=== PATIENT | female | born 1990 ===

== ENCOUNTER 2019-03-20 13:43 | Emergency (ER) | payer SELFPAY ==
[2019-03-20] MEDS ORDERED: MORPHINE 4 MG/ML SYR ONE (14:04)
[2019-03-20] MEDS ORDERED: ONDANSETRON 4 MG/2 ML VIAL ONE (14:04)
[2019-03-20 14:33] LABS: Absolute Lymphocytes (CBC) 1.3 K/uL (0.7-4.9); Basophils % 0.5 % (0-1.3); Hematocrit 39.5 % (36.0-45.0); Lymphocytes % 18.8 % (15.3-44.8); MPV 8.7 fL (7.6-11.3); RBC Red Blood Cell Count 4.51 M/uL (3.86-4.86)
[2019-03-20 14:55] LABS: ALT/SGPT 17 U/L (12-78); AST/SGOT 13 U/L (15-37); Albumin 3.8 g/dL (3.4-5.0); Alkaline Phosphatase 77 U/L (45-117); BUN Blood Urea Nitrogen 7 mg/dL (7-18); Bicarbonate 29 mmol/L (21-32); Bilirubin Direct < 0.1 mg/dL (0-0.2); Bilirubin Total 0.2 mg/dL (0.2-1.0); Glucose Level 73 mg/dL (74-106); Lipase 148 U/L (73-393); Potassium 3.8 mmol/L (3.5-5.1); Protein, Total 7.5 g/dL (6.4-8.2); Sodium Level 142 mmol/L (136-145)
--- NOTE | 2019-03-20 15:32 | RAD REPORT ---
EXAM DESCRIPTION: CTAbdomen Pelvis W Contrast - 03/20/2019 3:20 pm CLINICAL HISTORY: Abdominal pain. FLANK PAIN COMPARISON: No comparisons TECHNIQUE: Biphasic CT imaging of the abdomen and pelvis was performed with 100 ml non-ionic IV cont rast. All CT scans are performed using dose optimization technique as appropriate and may include automated exposure control or mA/KV adjustment according to patient size. FINDINGS: The lung bases are clear. The liver, spleen, pancreas, adrenal glands and kidneys are within normal limits. No bowel obstruction, free air, intra-abdominal free fluid or abscess. The appendix is normal. No e vidence of significant lymphadenopathy. Trace pelvic free fluid. No suspicious bony findings. The bladder mucosa shows mild enhancement. IMPRESSION: Cystitis is a possibility. Correlation with urinalysis is suggested.
[2019-03-20] MEDS ORDERED: CEFTRIAXONE/SWI 1gm 1 GM/10 ML SYR ONE (15:41)
[2019-03-20] MEDS ORDERED: KETOROLAC 30 MG/ML INJ ONE (16:11)
--- NOTE | 2019-03-20 16:14 | ER ---
Nurse's Notes [facility] Name: Sonya Guevara Age: 28 yrs Sex: Female : 1990 Arrival Date: 03/20/2019 Time: 13:44 Bed 19 Private MD: Diagnosis: Cystitis Presentation: 03/20 13:46 Presenting complaint: Right flank pain, difficulty urinating, and chills since last hb night. Hx of pyelonephritis reports pain is similar. Transition of care: patient was not received from another setting of care. Onset of symptoms was March 19, 2019. Risk Assessment: Do you want to hurt yourself or someone else? Patient reports no desire to harm self or others. Care prior to arrival: None. 13:46 Method Of Arrival: Ambulatory hb 13:46 Acuity: VICTORINA 3 hb 13:52 Initial Sepsis Screen: Does the patient meet any 2 criteria? No. Patient's initial tw2 sepsis screen is negative. Does the patient have a suspected source of infection? No. Patient's initial sepsis screen is negative. 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 tw2 Historical: - Allergies: 13:48 No Known Allergies; hb - Home Meds: 13:48 None [Active]; hb - PSHx: 13:48 None; hb - Immunization history:: Adult Immunizations up to date. - Social history:: Smoking status: Patient/guardian denies using tobacco. - Ebola Screening: : No symptoms or risks identified at this time. Screenin:51 Abuse screen: Denies threats or abuse. Nutritional screening: No deficits noted. tw2 Tuberculosis screening: No symptoms or risk factors identified. Fall Risk None identified. Assessment: 13:52 General: Appears uncomfortable, slender, Behavior is calm, cooperative, appropriate for tw2 age. Pain: Complains of pain in right mid back and right low back. Neuro: Level of Consciousness is awake, alert, obeys commands, Oriented to person, place, time, situation. Cardiovascular: Heart tones S1 S2 Patient's skin is warm and dry. Respiratory: Airway is patent Respiratory effort is even, unlabored, Respiratory pattern is regular, symmetrical, GI: Abdomen is flat, Bowel sounds present X 4 quads. Abd is soft X 4 quads Abdomen is tender to palpation in right upper quadrant and right lower quadrant. : Reports burning with urination, urgency, urinary frequency. EENT: No signs and/or symptoms were reported regarding the EENT system. Derm: No signs and/or symptoms reported regarding the dermatologic system. Musculoskeletal: Range of motion: intact in all extremities. 13:58 Reassessment: provider at bedside at this time. tw2 14:46 Reassessment: Patient appears in no apparent distress at this time. Patient and/or tw2 family updated on plan of care and expected duration. Pain level reassessed. Patient is alert, oriented x 3, equal unlabored respirations, skin warm/dry/pink. 15:45 Reassessment: Patient appears in no apparent distress at this time. Patient and/or tw2 family updated on plan of care and expected duration. Pain level reassessed. Patient is alert, oriented x 3, equal unlabored respirations, skin warm/dry/pink. Vital Signs: 13:47 BP 125 / 81; Pulse 102; Resp 16; Temp 97.7; Pulse Ox 100% on R/A; Weight 63.5 kg; hb Height 5 ft. (152.40 cm); Pain 8/10; 14:46 BP 98 / 74; Pulse 74; Resp 17; Pulse Ox 99% on R/A; tw2 15:46 BP 108 / 77; Pulse 73; Resp 17; Pulse Ox 100% on R/A; tw2 13:47 Body Mass Index 27.34 (63.50 kg, 152.40 cm) hb ED Course: 13:44 Patient arrived in ED. as 13:47 Triage completed. hb 13:47 Arm band placed on. hb 13:49 Bed in low position. Call light in reach. tw2 13:51 Pamela Penn, RN is Primary Nurse. tw2 13:55 Denny Shay NP is PHCP. tw2 14:10 Missed attempt(s): 20 gauge in right antecubital area. per Mary Student nurse with tw2 direct observation.. Bleeding controlled, band aid applied, catheter tip intact. Inserted saline lock: 22 gauge in left antecubital area, using aseptic technique. Blood collected. Missed attempt(s): 22 gauge in left antecubital area. Bleeding controlled, band aid applied, catheter tip intact. 15:21 CT Abd/Pelvis - IV Contrast Only In Process Unspecified. EDMS 16:13 Gavin Aponte MD is Attending Physician. pm1 16:20 No provider procedures requiring assistance completed. IV discontinued, intact, tw2 bleeding controlled, No redness/swelling at site. Pressure dressing applied. Administered Medications: 14:13 Drug: Zofran 4 mg Route: IVP; Site: left antecubital; tw2 14:45 Follow up: Response: No adverse reaction tw2 14:15 Drug: morphine 4 mg Route: IVP; Site: left antecubital; tw2 14:44 Follow up: Response: No adverse reaction tw2 14:45 Follow up: Response: No adverse reaction; Pain is decreased; RASS: Alert and Calm (0) tw2 15:45 Drug: Rocephin 1 grams Route: IV; Rate: calculated rate; Site: left antecubital; tw2 15:50 Follow up: Response: No adverse reaction; IV Status: Completed infusion tw2 16:13 Drug: TORadol - Ketorolac 15 mg Route: IVP; Site: left antecubital; tw2 16:20 Follow up: Response: No adverse reaction tw2 Outcome: 16:13 Discharge ordered by MD. pm1 16:20 Discharged to home ambulatory. tw2 16:20 Condition: stable 16:20 Discharge instructions given to patient, Instructed on discharge instructions, follow up and referral plans. medication usage, Demonstrated understanding of instructions, follow-up care, medications, Prescriptions given X 3. 16:21 Patient left the ED. tw2 Signatures: Dispatcher [employer] EDFL Jes Peña Patrick, NP LEARNING STRATEGIST pm1 Oliva Borges RN RN Pamela Penn RN RN tw2 Corrections: (The following items were deleted from the chart) 17:01 13:46 Presenting complaint: Right flank pain, difficulty urinating, and chills since hb last night. Hx of polynephritis, reports pain is similar. hb 17:01 13:48 PMHx: polynephritis; hb hb
--- NOTE | 2019-03-20 16:14 | EDPHYS ---
Physician Documentation [facility] Name: Sonya Guevara Age: 28 yrs Sex: Female : 1990 Arrival Date: 03/20/2019 Time: 13:44 Bed 19 Private MD: ED Physician Gavin Aponte HPI: 03/20 15:05 This 28 yrs old Female presents to ER via Ambulatory with complaints of Right Flank pm1 Pain, Abdominal Swelling. 15:05 The patient complains of pain in the right low back. The pain does not radiate. pm1 15:05 Onset: The symptoms/episode began/occurred yesterday. Modifying factors: The symptoms pm1 are alleviated by nothing. the symptoms are aggravated by nothing. Associated signs and symptoms: Pertinent positives: dysuria, urinary frequency, Chills, Pertinent negatives: diarrhea, nausea, vomiting. Severity of pain: in the emergency department the pain is actually worse. The patient has experienced a previous episode, and the symptoms today are exactly the same, dx with pyelonephritis. The patient has not recently seen a physician. 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 tw2 Historical: - Allergies: 13:48 No Known Allergies; hb - Home Meds: 13:48 None [Active]; hb - PSHx: 13:48 None; hb - Immunization history:: Adult Immunizations up to date. - Social history:: Smoking status: Patient/guardian denies using tobacco. - Ebola Screening: : No symptoms or risks identified at this time. ROS: 15:05 Constitutional: Negative for fever, chills, and weight loss, Eyes: Negative for injury, pm1 pain, redness, and discharge, ENT: Negative for injury, pain, and discharge, Neck: Negative for injury, pain, and swelling, Cardiovascular: Negative for chest pain, palpitations, and edema, Respiratory: Negative for shortness of breath, cough, wheezing, and pleuritic chest pain. 15:05 : Negative for injury, bleeding, discharge, and swelling, MS/Extremity: Negative for injury and deformity, Skin: Negative for injury, rash, and discoloration. 15:05 Neuro: Negative for headache, weakness, numbness, tingling, and seizure. 15:05 Abdomen/GI: Positive for abdominal pain, Negative for nausea, vomiting, and diarrhea. 15:05 Back: Positive for flank pain, on the right. Exam: 15:05 Constitutional: This is a well developed, well nourished patient who is awake, alert, pm1 and in no acute distress. Head/Face: Normocephalic, atraumatic. Neck: Trachea midline, no thyromegaly or masses palpated, and no cervical lymphadenopathy. Supple, full range of motion without nuchal rigidity, or vertebral point tenderness. No Meningismus. Chest/axilla: Normal chest wall appearance and motion. Nontender with no deformity. No lesions are appreciated. Cardiovascular: Regular rate and rhythm with a normal S1 and S2. No gallops, murmurs, or rubs. Normal PMI, no JVD. No pulse deficits. Respiratory: Lungs have equal breath sounds bilaterally, clear to auscultation and percussion. No rales, rhonchi or wheezes noted. No increased work of breathing, no retractions or nasal flaring. 15:05 Skin: Warm, dry with normal turgor. Normal color with no rashes, no lesions, and no evidence of cellulitis. MS/ Extremity: Pulses equal, no cyanosis. Neurovascular intact. Full, normal range of motion. 15:05 Abdomen/GI: Inspection: abdomen appears normal, Bowel sounds: normal, Palpation: mild abdominal tenderness, in the suprapubic area. 15:05 Back: pain, that is mild, of the right low back, normal spinal alignment noted. 15:05 Neuro: Orientation: is normal, Motor: is normal, no acute changes, moves all fours. Vital Signs: 13:47 BP 125 / 81; Pulse 102; Resp 16; Temp 97.7; Pulse Ox 100% on R/A; Weight 63.5 kg; hb Height 5 ft. (152.40 cm); Pain 8/10; 14:46 BP 98 / 74; Pulse 74; Resp 17; Pulse Ox 99% on R/A; tw2 15:46 BP 108 / 77; Pulse 73; Resp 17; Pulse Ox 100% on R/A; tw2 13:47 Body Mass Index 27.34 (63.50 kg, 152.40 cm) hb MDM: 14:02 Patient medically screened. pm1 16:11 Data reviewed: vital signs. Data interpreted: Pulse oximetry: on room air is 100 %. pm1 Interpretation: normal. Counseling: I had a detailed discussion with the patient and/or guardian regarding: the historical points, exam findings, and any diagnostic results supporting the discharge/admit diagnosis, lab results, radiology results, the need for outpatient follow up, to return to the emergency department if symptoms worsen or persist or if there are any questions or concerns that arise at home. 03/20 14:03 Order name: Basic Metabolic Panel; Complete Time: 15:05 pm1 03/20 14:03 Order name: CBC with Diff; Complete Time: 14:45 pm1 03/20 14:03 Order name: Creatinine for Radiology; Complete Time: 14:53 pm1 03/20 14:03 Order name: Hepatic Function; Complete Time: 15:05 pm1 03/20 14:03 Order name: Lipase; Complete Time: 15:05 pm1 03/20 15:13 Order name: Urine Dipstick--Ancillary (enter results) 03/20 14:03 Order name: IV Saline Lock; Complete Time: 14:19 pm1 03/20 14:03 Order name: CT Abd/Pelvis - IV Contrast Only; Complete Time: 15:36 pm1 03/20 15:13 Order name: Urine --Ancillary (enter results) 03/20 15:14 Order name: Urine Microscopic Only 03/20 14:03 Order name: Labs collected and sent; Complete Time: 14:19 pm1 03/20 14:03 Order name: Urine Dipstick-Ancillary (obtain specimen); Complete Time: 15:08 pm1 03/20 14:03 Order name: Urine Test (obtain specimen); Complete Time: 15:08 pm1 Administered Medications: 14:13 Drug: Zofran 4 mg Route: IVP; Site: left antecubital; tw2 14:45 Follow up: Response: No adverse reaction tw2 14:15 Drug: morphine 4 mg Route: IVP; Site: left antecubital; tw2 14:44 Follow up: Response: No adverse reaction tw 14:45 Follow up: Response: No adverse reaction; Pain is decreased; RASS: Alert and Calm (0) tw2 15:45 Drug: Rocephin 1 grams Route: IV; Rate: calculated rate; Site: left antecubital; tw2 15:50 Follow up: Response: No adverse reaction; IV Status: Completed infusion tw2 16:13 Drug: TORadol - Ketorolac 15 mg Route: IVP; Site: left antecubital; tw2 16:20 Follow up: Response: No adverse reaction tw2 Disposition: 03/21 09:18 Co-signature as Attending Physician, Gavin Aponte MD I agree with the assessment and kdr plan of care. Disposition: 03/20/19 16:13 Discharged to Home. Impression: Cystitis. - Condition is Stable. - Discharge Instructions: Urinary Tract Infection, Adult. - Prescriptions for Macrobid 100 mg Oral Capsule - take 1 capsule by ORAL route every 12 hours for 10 days; 20 capsule. Pyridium 200 mg Oral Tablet - take 1 tablet by ORAL route every 8 hours for 3 days; 9 tablet. Tramadol 50 mg Oral Tablet - take 1 tablet by ORAL route every 8 hours as needed; 12 tablet. - Medication Reconciliation Form, Thank You Letter, Antibiotic Education, Prescription Opioid Use, Work release form form. - Follow up: Emergency Department; When: As needed; Reason: Worsening of condition. Follow up: Private Physician; When: 2 - 3 days; Reason: Recheck today's complaints, Continuance of care, Re-evaluation by your physician. - Problem is new. - Symptoms have improved. Signatures: Dispatcher [employer] EDMS Gavin Aponte MD MD [facility] Denny Shay NP RESHIPPING CLERK pm1 Oliva Borges, RN RN Pamela Penn RN RN tw2 Corrections: (The following items were deleted from the chart) 03/20 16:21 16:13 03/20/2019 16:13 Discharged to Home. Impression: Cystitis. Condition is Stable. tw2 Forms are Medication Reconciliation Form, Thank You Letter, Antibiotic Education, Prescription Opioid Use. Follow up: Emergency Department; When: As needed; Reason: Worsening of condition. Follow up: Private Physician; When: 2 - 3 days; Reason: Recheck today's complaints, Continuance of care, Re-evaluation by your physician. Problem is new. Symptoms have improved. pm1 17:01 13:48 PMHx: polynephritis; hb hb
[2019-03-20 16:34] LABS: Urine Blood TRACE (NEG); Urine Glucose NEGATIVE (NEG); Urine Protein TRACE (NEG); Urine pH 8.5 (5.0-7.0)
[2019-03-20 16:40] VITALS: TEMP 97.7
[2019-03-20 16:42] VITALS: BP 108/77; O2SAT 100
[2019-03-20 16:42] LABS: Urine Bacteria 20-50 /HPF (<20)
[2019-03-20 16:43] LABS: Urine Culture Reflex Order REFLEXED; Urine Trichomonas PRESENT (NONE SEEN)
== END 2019-03-20 16:21 | disposition home or self-care (01) ==
LOC: ER 13:43
DX: N30.90 Cystitis, unspecified without hematuria (principal)
CPT/HCPCS: 36415; 74177; 80048; 80076; 81003; 81015; 81025; 83690; 85025; 87086; 87088; J0696; J2405; Q9967

== ENCOUNTER 2019-05-23 19:59 | Emergency (ER) | payer SELFPAY ==
--- OUTSIDE RECORDS SUMMARY | 2019-05-23 20:02 | XMS REPORT ---
:1990 [facility] Address [address] [place] [address] Care Team Providers Name Role Phone ALISTAIR BHAKTA Unavailable Unavailable Payers Payer Name Policy Type Policy Number Effective Date Expiration Date Problems This patient has no known problems. Allergies, Adverse Reactions, Alerts Allergy Allergy Status Severity Reaction(s) Onset Inactive Treating Comments Name Type Date Date Clinician No Known DA Active U 2014-04 Allergies -09 00:00:0 0 Medications This patient has no known medications. Results Test Description Test Time Test Comments Text Results Atomic Results Result Comments [facility] [address] [facility] ABDOMEN/PELVIS [place], [place] [address] Patient Name: DELISA GODOY MR #: [id number] : 1990 Age/Sex: 27/F Req #: [id number] Adm Physician: Ordered by: ALISTAIR BHAKTA MD Report #: [id number] Location: ER Room/Bed: _ Procedure: [id number] CT/CT ABDOMEN/PELVIS WO Exam Date: Exam Time: REPORT STATUS: Signed EXAM: CT Abdomen and Pelvis WITHOUT contrast INDICATION: Flank pain, stone versus nephritis COMPARISON: None. TECHNIQUE: Abdomen and pelvis were scanned utilizing a multidetector helical scanner from the lung base to the pubic symphysis without administration of IV contrast. Absence of intravenous contrast decreases sensitivity for detection of focal lesions and vascular pathology. Coronal and sagittal reformations were obtained. Stone protocol is performed. IV CONTRAST: None. ORAL CONTRAST: None RADIATION DOSE: Total DLP: 283.30 mGy*cm Estimated effective dose: (DLP x 0.015 x size factor) mSv COMPLICATIONS: None FINDINGS: LINES and TUBES: None. LOWER THORAX: Unremarkable HEPATOBILIARY: No focal hepatic lesions. No biliary ductal dilation. GALLBLADDER : No radio-opaque stones or sludge. No wall thickening. SPLEEN: No splenomegaly. PANCREAS: No focal masses or ductal dilatation. ADRENALS: No adrenal nodules KIDNEYS/URETERS: There is mild effacement of the right renal sinus fat and prominence of the right ureter without hydronephrosis. No cystic or solid mass lesions. No stones. GI TRACT: No abnormal distention, wall thickening, or evidence of bowel obstruction. Appendix is not clearly identified. There is however no fat stranding or adenopathy in the right lower quadrant to suggest appendicitis. PELVIC ORGANS/BLADDER : Unremarkable. LYMPH NODES: No lymphadenopathy. VESSELS: Unremarkable. PERITONEUM / RETROPERITONEUM: No free air or fluid. BONES: Unremarkable. SOFT TISSUES: Unremarkable. IMPRESSION: 1. Findings are suspicious for right-sided pyelonephritis in the appropriate clinical setting 2. No evidence of nephrolithiasis Signed by: Dr. Damian Brown M.D. on 09/22/2017 3:34 AM Dictated By: DAMIAN CALVERT MD 3 Transcribed By: MARIO on 09/22/17333 COPY TO: ALISTAIR BHAKTA MD
[2019-05-23 20:56] LABS: Urine Blood 1+ (NEG); Urine Glucose NEGATIVE (NEG); Urine Protein TRACE (NEG); Urine Specific Gravity 1.025 (1.005-1.030); Urine pH 5.5 (5.0-7.0)
[2019-05-23 20:56] LABS: Urine Bacteria >50 /HPF (<20); Urine Culture Reflex Order REFLEXED
--- NOTE | 2019-05-23 21:04 | EDPHYS ---
Physician Documentation [facility] Name: Sonya Guevara Age: 28 yrs Sex: Female : 1990 Arrival Date: 05/23/2019 Time: 20:02 Bed 28 Private MD: ED Physician Lito De Guzman HPI: 05/23 20:36 This 28 yrs old Female presents to ER via Ambulatory with complaints of Pain With kb Urination. 20:36 The patient presents with urinary symptoms, dysuria. Onset: The symptoms/episode kb began/occurred today. Modifying factors: The symptoms are alleviated by nothing, the symptoms are aggravated by urinating. Associated signs and symptoms: Pertinent positives: dysuria. Severity of symptoms: At their worst the symptoms were moderate, in the emergency department the symptoms are unchanged. The patient is sexually active. The patient has not experienced similar symptoms in the past. The patient has not recently seen a physician. Pt reports dysuria that started this morning. Denies any other symptoms. Reports boyfriend has similar symptoms. 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 - Social history:: Smoking status: Patient uses tobacco products, smokes one-half pack cigarettes per day. - Ebola Screening: : No symptoms or risks identified at this time. ROS: 20:34 Constitutional: Negative for fever, chills, and weight loss, Neck: Negative for injury, kb pain, and swelling, Cardiovascular: Negative for chest pain, palpitations, and edema, Respiratory: Negative for shortness of breath, cough, wheezing, and pleuritic chest pain, Abdomen/GI: Negative for abdominal pain, nausea, vomiting, diarrhea, and constipation, Back: Negative for injury and pain, MS/Extremity: Negative for injury and deformity, Skin: Negative for injury, rash, and discoloration, Neuro: Negative for headache, weakness, numbness, tingling, and seizure. 20:34 : Positive for burning with urination. Exam: 20:34 Constitutional: This is a well developed, well nourished patient who is awake, alert, kb and in no acute distress. Head/Face: Normocephalic, atraumatic. Neck: Trachea midline, no thyromegaly or masses palpated, and no cervical lymphadenopathy. Supple, full range of motion without nuchal rigidity, or vertebral point tenderness. No Meningismus. Chest/axilla: Normal chest wall appearance and motion. Nontender with no deformity. No lesions are appreciated. Cardiovascular: Regular rate and rhythm with a normal S1 and S2. No gallops, murmurs, or rubs. Normal PMI, no JVD. No pulse deficits. Respiratory: Lungs have equal breath sounds bilaterally, clear to auscultation and percussion. No rales, rhonchi or wheezes noted. No increased work of breathing, no retractions or nasal flaring. Abdomen/GI: Soft, non-tender, with normal bowel sounds. No distension or tympany. No guarding or rebound. No evidence of tenderness throughout. Skin: Warm, dry with normal turgor. Normal color with no rashes, no lesions, and no evidence of cellulitis. MS/ Extremity: Pulses equal, no cyanosis. Neurovascular intact. Full, normal range of motion. Neuro: Awake and alert, GCS 15, oriented to person, place, time, and situation. Cranial nerves II-XII grossly intact. Motor strength 5/5 in all extremities. Sensory grossly intact. Cerebellar exam normal. Normal gait. Vital Signs: 20:19 BP 111 / 78; Pulse 90; Resp 18; Temp 98.3(O); Pulse Ox 98% on R/A; Weight 65.77 kg (R); lp1 Height 5 ft. 0 in. (152.40 cm); Pain 5/10; 21:40 BP 115 / 80; Pulse 80; Resp 16; Temp 98.3; Pulse Ox 99% on R/A; sr5 20:19 Body Mass Index 28.32 (65.77 kg, 152.40 cm) lp1 MDM: 20:20 Patient medically screened. kb 20:34 Data reviewed: vital signs, nurses notes. Data interpreted: Pulse oximetry: on room air kb is 98 %. Interpretation: normal. 21:01 Counseling: I had a detailed discussion with the patient and/or guardian regarding: the kb historical points, exam findings, and any diagnostic results supporting the discharge/admit diagnosis, lab results, the need for outpatient follow up, a family practitioner, to return to the emergency department if symptoms worsen or persist or if there are any questions or concerns that arise at home. ED course: Boyfriend here with similar symptoms + penile discharge. w. 05/23 20:20 Order name: Urine Microscopic Only; Complete Time: 21:00 kb 05/23 20:36 Order name: Urine Dipstick--Ancillary (enter results); Complete Time: 21:00 ar5 05/23 20:36 Order name: Urine --Ancillary (enter results); Complete Time: 21:00 ar5 05/23 20:57 Order name: Urine Culture EDUT 05/23 20:20 Order name: Urine Test (obtain specimen); Complete Time: 20:35 kb 05/23 20:20 Order name: Urine Dipstick-Ancillary (obtain specimen); Complete Time: 20:35 kb Administered Medications: 21:30 Drug: Zithromax 1 grams Route: PO; sr5 22:10 Follow up: Response: Nausea is increased sr5 21:32 Drug: Rocephin (cefTRIAXone) 250 mg Route: IM; Site: right ventrogluteal; sr5 22:10 Follow up: Response: No adverse reaction sr5 Disposition: 05/24 05:47 Co-signature as Attending Physician, Lito De Guzman MD I agree with the assessment and hanna plan of care. Disposition: 05/23/19 21:03 Discharged to Home. Impression: Urinary tract infection, site not specified. - Condition is Stable. - Discharge Instructions: Sexually Transmitted Disease, [id number], Urinary Tract Infection, Adult, [id number]. - Prescriptions for Doxycycline Hyclate 100 mg Oral Tablet - take 1 tablet by ORAL route once daily; 10 tablet. - Medication Reconciliation Form, Thank You Letter, Antibiotic Education, Prescription Opioid Use form. - Follow up: Emergency Department; When: As needed; Reason: Worsening of condition. Follow up: Private Physician; When: 2 - 3 days; Reason: Recheck today's complaints, Continuance of care, Re-evaluation by your physician. Signatures: Dispatcher [facility] Jackelyn Rasmussen, COORDINATOR CARDIOPULMONARY SERVICESDeliaC Lito Frias MD MD cha Pena, Laura, RN RN lp1 Resecker, Davin RN RN sr5 Corrections: (The following items were deleted from the chart) 05/23 22:08 21:03 05/23/2019 21:03 Discharged to Home. Impression: Urinary tract infection, site sr5 not specified. Condition is Stable. Forms are Medication Reconciliation Form, Thank You Letter, Antibiotic Education, Prescription Opioid Use. Follow up: Emergency Department; When: As needed; Reason: Worsening of condition. Follow up: Private Physician; When: 2 - 3 days; Reason: Recheck today's complaints, Continuance of care, Re-evaluation by your physician. kb
--- NOTE | 2019-05-23 21:04 | ER ---
Nurse's Notes [facility] Name: Sonya Guevara Age: 28 yrs Sex: Female : 1990 Arrival Date: 05/23/2019 Time: 20:02 Bed 28 Private MD: Diagnosis: Urinary tract infection, site not specified Presentation: 05/23 20:18 Presenting complaint: Patient states: Burning with urination that began this morning; lp1 Denies any other symptoms. Transition of care: patient was not received from another setting of care. Onset of symptoms was May 23, 2019. Risk Assessment: Do you want to hurt yourself or someone else? Patient reports no desire to harm self or others. Initial Sepsis Screen: Does the patient meet any 2 criteria? No. Patient's initial sepsis screen is negative. Does the patient have a suspected source of infection? No. Patient's initial sepsis screen is negative. Care prior to arrival: None. 20:18 Method Of Arrival: Ambulatory lp1 20:18 Acuity: VICTORINA 4 lp1 ESTABLISHMENT GUIDE: 20:19 LMP 05/23/2019 lp1 Historical: - Allergies: 20:19 No Known Allergies; lp1 - Home Meds: 20:19 None [Active]; lp1 - PMHx: 20:19 None; lp1 - PSHx: 20:19 None; lp1 - Immunization history:: Adult Immunizations up to date. - Social history:: Smoking status: Patient uses tobacco products, smokes one-half pack cigarettes per day. - Ebola Screening: : No symptoms or risks identified at this time. Screenin:20 Abuse screen: Denies threats or abuse. Denies injuries from another. Nutritional lp1 screening: No deficits noted. Tuberculosis screening: No symptoms or risk factors identified. Fall Risk None identified. Assessment: 20:36 General: Appears in no apparent distress. Behavior is calm, cooperative. Pain: Denies sr5 pain. Neuro: No deficits noted. Cardiovascular: No deficits noted. Respiratory: No deficits noted. GI: Abdomen is flat, non-distended, Bowel sounds present X 4 quads. Abd is soft and non tender. : Reports burning with urination. EENT: No signs and/or symptoms were reported regarding the EENT system. Derm: No signs and/or symptoms reported regarding the dermatologic system. Musculoskeletal: No signs and/or symptoms reported regarding the musculoskeletal system. 21:40 Reassessment: Pt experienced some nausea following administration of meds. Vomited sr5 scant amount, no visible pill fragments. Provider notified. Vital Signs: 20:19 BP 111 / 78; Pulse 90; Resp 18; Temp 98.3(O); Pulse Ox 98% on R/A; Weight 65.77 kg (R); lp1 Height 5 ft. 0 in. (152.40 cm); Pain 5/10; 21:40 BP 115 / 80; Pulse 80; Resp 16; Temp 98.3; Pulse Ox 99% on R/A; sr5 20:19 Body Mass Index 28.32 (65.77 kg, 152.40 cm) lp1 ED Course: 20:02 Patient arrived in ED. cl3 20:18 Triage completed. lp1 20:18 Arm band placed on. lp1 20:20 Jackelyn Rasmussen F[facility]-C [facility] kb 20:20 Lito De Guzman MD is Attending Physician. kb 20:33 Davin Polk, RN is Primary Nurse. sr5 20:36 Patient has correct armband on for positive identification. Bed in low position. Call sr5 light in reach. 20:36 Urine collected: clean catch specimen, clear. bb 21:40 No provider procedures requiring assistance completed. Patient did not have IV access sr5 during this emergency room visit. Administered Medications: 21:30 Drug: Zithromax 1 grams Route: PO; sr5 22:10 Follow up: Response: Nausea is increased sr5 21:32 Drug: Rocephin (cefTRIAXone) 250 mg Route: IM; Site: right ventrogluteal; sr5 22:10 Follow up: Response: No adverse reaction sr5 Outcome: 21:03 Discharge ordered by . kb 21:40 Discharged to home ambulatory, with family. sr5 21:40 Condition: good 21:40 Discharge instructions given to patient, Instructed on discharge instructions, follow up and referral plans. medication usage, Demonstrated understanding of instructions, follow-up care, medications, Prescriptions given X 1. 22:08 Patient left the ED. sr5 Signatures: Jackelyn Rasmussen FNP-C FNP-Ckb Ballard, Brenda, RN RN bb Aurelia Galan RN RN lp1 Davin Polk RN RN sr5 Luis Alberto Dee cl3
[2019-05-23] MEDS ORDERED: AZITHROMYCIN 250 MG TAB ONE (21:30)
[2019-05-23] MEDS ORDERED: CEFTRIAXONE 250 MG/VIAL ONE (21:30)
[2019-05-23] MEDS ORDERED: WATER FOR INJ,STERILE 10 ML ONE (21:31)
[2019-05-23 22:27] VITALS: BP 111/78; TEMP 98.3; O2SAT 98
== END 2019-05-23 22:08 | disposition home or self-care (01) ==
LOC: ER 19:59
DX: N39.0 Urinary tract infection, site not specified (principal); F17.210 Nicotine dependence, cigarettes, uncomplicated
CPT/HCPCS: 81003; 81015; 81025; 87086; 87088; 96372; 99283; J0696

== ENCOUNTER 2020-01-24 00:13 | Emergency (ER) | payer SELFPAY ==
--- OUTSIDE RECORDS SUMMARY | 2020-01-24 00:16 | XMS REPORT | Clinical Summary ---
:1990 Author Organization [facility] Address [address] [place] [id number] Care Team Providers Name Role Phone Constantine Nieto MD Primary Care Provider Allergies No Known Allergies Medications No known medications Active Problems Not on file Social History Tobacco Use Types Packs/Day Years Used Date Current Every Day Smoker Cigarettes 0.5 Smokeless Tobacco: Never Used Alcohol Use Drinks/Week oz/Week Comments Yes Sex Assigned at Date Recorded Not on file Job Start Date Occupation Industry Not on file Not on file Not on file Travel History Travel Start Travel End No recent travel history available. 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
--- OUTSIDE RECORDS SUMMARY | 2020-01-24 00:17 | XMS REPORT | Continuity of Care Document ---
:1990 Author Organization [facility] t Address [address] [place] [address] Care Team Providers Name Role Phone NONSTAFF Primary Care Physician Unavailable Nuria BHAKTA Attending Clinician Unavailable Payers Payer Name Policy Type Policy Number Effective Date Expiration Date S ource Blue [employer] Of [id number] [facility] Problems This patient has no known problems. Allergies, Adverse Reactions, Alerts Allergy Allergy Status Severity Reaction(s) Onset Inactive Treating Comm ents Source Name Type Date Date Clinician No Known DA Active U 2013-05 [facility] 07-07 [facility] 00:00: d 00 [facility] [place] Social History Social Habit Start Date Stop Date Quantity Comments Source History of tobacco Cigarette Smoker [place] use Scientologist Sex Assigned At [place] Scientologist Cigarettes smoked 2017-12-28 2017-12-28 [place] current (pack per 00:00:00 00:00:00 Method) - Reported Alcohol intake 2017-12-28 2017-12-28 Current drinker [place] on 00:00:00 00:00:00 of alcohol Scientologist (finding) Smoking Status Start Date Stop Date Source Current every day smoker 2017-12-28 00:00:00 [place] Scient[facility] Medications This patient has no known medications. Procedures Procedure Date / Time Performed Performing Clinician [facility] e [facility] of abdomen and 2017-09-22 00:00:[address] [facility] - pelvis without Patients [facility] Plan of Care Planned Activity Planned Date Details Comments Source Future Scheduled 2020-02-27 INFLUENZA VACCINE [place] [facility] Test 00:00:00 [code = INFLUENZA VACCINE] Future Scheduled 2013 Screening for [place] [facility] Test 00:00:00 malignant neoplasm of cervix (procedure) [code = 166894938] Encounters Start End Encounter Admission Attending Care Care Encounter Source Date/Time Date/Time Type Type Clinicians Facility Department ID 2017-09-22 2017-09-22 Departed ER [facility] [id number] [facility] 01:23:00 04:37:00 Emergency ALISTAIR Vásquez guillermo s - [facility] Results Test Description Test Time Test Comments Results Result Comments Source White Blood Count 2017-09-22 02:15:00 Test Item Value Reference Range Interpretation Comme nts White Blood Count (test code = 6690-2) 8.80 4.8-10.8 [facility] [id number] 02:15:00 Test Item Value Reference Range Interpretation Comments Red Blood Count (test code = 789-8) 4.40 3.6-5.1 [facility]-04[facility] 02:15:00 Test Item Value Reference Range Interpretation Comments Hemoglobin (test code = 17005-6) 13.2 12.0-16.0 [facility]ematocrit2018-04-27 02:15:00 Test Item Value Reference Range Interpretation Comments Hematocrit (test code = 4544-3) 38.1 34.2-44.1 [facility] Corpuscular [id number] 02:15:00 Test Item Value Reference Range Interpretation Comments Mean Corpuscular Volume (test code = 86.6 81-99 787-2) [facility] Corpuscular Ambrrshoan2503-29-12 02:15:00 Test Item Value Reference Range Interpretation Comments Mean Corpuscular Hemoglobin (test code 30.0 28-32 = 785-6) [facility] Hemoglobin Concent 2017-09-22 02:15:00 Test Item Value Reference Range Interpretation Comments Mean Corpuscular Hemoglobin Concent 34.6 31-35 (test code = 786-4) [facility] Distribution [id number] 02:15:00 Test Item Value Reference Range Interpretation Comments Red Cell Distribution Width (test code 13.6 11.7-14.4 = 16689-7) [facility] CenterPlatelet [id number] 02:15:00 Test Item Value Reference Range Interpretation Comments Platelet Count (test code = 777-3) 294 140-360 [facility]rophils (%) (Auto)2017-09-22 02:15:00 Test Item Value Reference Range Interpretation Comments Neutrophils (%) (Auto) (test code = 54.8 38.7-80.0 86365-1) [facility]Lymphocytes (%) (Auto)2017-09-22 02:15:00 Test Item Value Reference Range Interpretation Comments Lymphocytes (%) (Auto) (test code = 34.4 18.0-39.1 736-9) [facility] (%) (Auto)2017-09-22 02:15:00 Test Item Value Reference Range Interpretation Comments Monocytes (%) (Auto) (test code = 6.6 4.4-11.3 5905-5) [facility]Eosinophils (%) (Auto)2017-09-22 02:15:00 Test Item Value Reference Range Interpretation Comments Eosinophils (%) (Auto) (test code = 3.2 0.0-6.0 713-8) [facility] (%) (Auto)2017-09-22 02:15:00 Test Item Value Reference Range Interpretation Comments Basophils (%) (Auto) (test code = 0.7 0.0-1.0 706-2) [facility] CenterIM GRANULOCYTES %2017-09-22 02:15:00 Test Item Value Reference Range Interpretation Comments IM GRANULOCYTES % (test code = IM 0.3 0.0-1.0 GRANULOCYTES %) [facility] CenterNeutrophils # (Auto)2017-09-22 02:15:00 Test Item Value Reference Range Interpretation Comments Neutrophils # (Auto) (test code = 4.8 2.1-6.9 751-8) [facility] CenterLymphocytes # (Auto)2017-09-22 02:15:00 Test Item Value Reference Range Interpretation Comments Lymphocytes # (Auto) (test code = 3.0 1.0-3.2 22647-3) [facility] CenterMonocytes # (Auto)2017-09-22 02:15:00 Test Item Value Reference Range Interpretation Comments Monocytes # (Auto) (test code = 742-7) 0.6 0.2-0.8 [facility] CenterEosinophils # (Auto)2017-09-22 02:15:00 Test Item Value Reference Range Interpretation Comments Eosinophils # (Auto) (test code = 0.3 0.0-0.4 711-2) [facility] # (Auto)2017-09-22 02:15:00 Test Item Value Reference Range Interpretation Comments Basophils # (Auto) (test code = 704-7) 0.1 0.0-0.1 [facility] CenterAbsolute Immature Granulocyte (auto 2017-09-22 02:15:00 Test Item Value Reference Range Interpretation Comments Absolute Immature Granulocyte (auto 0.03 0-0.1 (test code = Absolute Immature Granulocyte (auto) [facility] CenterUrine [id number] 02:11:00 Test Item Value Reference Range Interpretation Comments Urine Test (test code = NEGATIVE NEGATIVE 6-3) [facility] [id number] 02:11:00 Test Item Value Reference Range Interpretation Comments Sodium Level (test code = 2951-2) 137 136-145 [facility] CenterPotassium Dlmkt2507-59-15 02:11:00 Test Item Value Reference Range Interpretation Comments Potassium Level (test code = 2823-3) 3.8 3.5-5.1 [facility] CenterChloride [id number] 02:11:00 Test Item Value Reference Range Interpretation Comments Chloride Level (test code = 2075-0) 104 98-107 [facility] CenterCarbon Dioxide [id number] 02:11:00 Test Item Value Reference Range Interpretation Comments Carbon Dioxide Level (test code = 2028-01) [facility] CenterAnion [id number] 02:11:00 Test Item Value Reference Range Interpretation Comments Anion Gap (test code = 71620-6) 11.8 8-16 [facility] CenterBlood Urea Okkamcux6640-17-47 02:11:00 Test Item Value Reference Range Interpretation Comments Blood Urea Nitrogen (test code = 12-21 3094-0) [facility] CenterCreatinine2018-04-27 02:11:00 Test Item Value Reference Range Interpretation Comments Creatinine (test code = 2160-0) 0.71 0.57-1.11 [facility] CenterBUN/Creatinine Gexuk4535-53-78 02:11:00 Test Item Value Reference Range Interpretation Comments BUN/Creatinine Ratio (test code = 11-20 3097-3) [facility] CenterEstimat Glomerular Filtration Rate 2017-09-22 02:11:00 Test Item Value Reference Range Interpretation Comments Estimat Glomerular Filtration Rate 60- >60 (test code = 77582-2) Ranges were taken from the National Kidney Disease Education Program and the National Kidney Foundation literature.Reference ranges:60 or greater: Jzdqtp58- 59 (for 3 consecutive months): Chronic kidneydisease 15 or less: Kidney failure [facility] CenterGlucose Alips0597-57-32 02:11:00 Test Item Value Reference Range Interpretation Comments Glucose Level (test code = TII3316) 136 74-118 H [facility] CenterCalcium Ljhyo9804-67-10 02:11:00 Test Item Value Reference Range Interpretation Comments Calcium Level (test code = 43320-8) 9.1 8.4-10.2 [facility] CenterTotal Mjwnuxtxw7271-18-39 02:11:00 Test Item Value Reference Range Interpretation Comments Total Bilirubin (test code = 1975-2) 0.2 0.2-1.2 [facility] CenterAspartate Amino Transf (AST/SGOT) 2017-09-22 02:11:00 Test Item Value Reference Range Interpretation Comments Aspartate Amino Transf (AST/SGOT) (test 15 5-34 code = Aspartate Amino Transf (AST/SGOT)) [facility] CenterAlanine Aminotransferase (ALT/SGPT) 2017-09-22 02:11:00 Test Item Value Reference Range Interpretation Comments Alanine Aminotransferase (ALT/SGPT) 14 0-55 (test code = 1742-6) [facility] CenterTotal [id number] 02:11:00 Test Item Value Reference Range Interpretation Comments Total Protein (test code = 2885-2) 7.3 6.5-8.1 [facility] CenterAlbumin2018-04-27 02:11:00 Test Item Value Reference Range Interpretation Comments Albumin (test code = 1751-7) 3.8 3.5-5.0 [facility] CenterGlobulin2018-04-27 02:11:00 Test Item Value Reference Range Interpretation Comments Globulin (test code = 48525-4) 3.5 2.3-3.5 [facility] CenterAlbumin/Globulin Iseko7176-04-93 02:11:00 Test Item Value Reference Range Interpretation Comments Albumin/Globulin Ratio (test code = 1.1 0.8-2.0 1759-0) [facility] CenterAlkaline Brgmxygqeyo0677-34-57 02:11:00 Test Item Value Reference Range Interpretation Comments Alkaline Phosphatase (test code = 70 40-150 6768-6) [facility] CenterUrine [id number] 02:09:00 Test Item Value Reference Range Interpretation Comments Urine WBC (test code = 5821-4) 0-5 0-5 [facility] CenterUrine [id number] 02:09:00 Test Item Value Reference Range Interpretation Comments Urine RBC (test code = 71264-9) 0-5 0-5 [facility] CenterUrine [id number] 02:09:00 Test Item Value Reference Range Interpretation Comments Urine Bacteria (test code = 62345-6) RARE NONE [facility] CenterUrine Epithelial [id number] 02:09:00 Test Item Value Reference Range Interpretation Comments Urine Epithelial Cells (test code = FEW NONE 90261-3) [facility] CenterUrine [id number] 02:00:00 Test Item Value Reference Range Interpretation Comments Urine Color (test code = 5778-6) YELLOW YELLOW [facility] CenterUrine Gcwpyvy9999-76-00 02:00:00 Test Item Value Reference Range Interpretation Comments Urine Clarity (test code = 42537-7) CLEAR CLEAR [facility] CenterUrine Specific [id number] 02:00:00 Test Item Value Reference Range Interpretation Comments Urine Specific [place] (test code = 1.025 1.010-1.025 5811-5) [facility] CenterUrine [id number] 02:00:00 Test Item Value Reference Range Interpretation Comments Urine pH (test code = 65379-0) 6 5-7 [facility] CenterUrine Leukocyte Fdyulpas8636-11-05 02:00:00 Test Item Value Reference Range Interpretation Comments Urine Leukocyte Esterase (test code NEGATIVE NEGATIVE = 5799-2) [facility] CenterUrine [id number] 02:00:00 Test Item Value Reference Range Interpretation Comments Urine Nitrite (test code = 77898-0) NEGATIVE NEGATIVE [facility] CenterUrine [id number] 02:00:00 Test Item Value Reference Range Interpretation Comments Urine Protein (test code = 5804-0) NEGATIVE NEGATIVE [facility] CenterUrine Glucose (UA)2017-09-22 02:00:00 Test Item Value Reference Range Interpretation Comments Urine Glucose (UA) (test code = NEGATIVE NEGATIVE 2349-9) [facility] CenterUrine [id number] 02:00:00 Test Item Value Reference Range Interpretation Comments Urine Ketones (test code = 19022-0) NEGATIVE NEGATIVE [facility] CenterU[facility] Avgurrlcydna8553-00-74 02:00:00 Test Item Value Reference Range Interpretation Comments Urine Urobilinogen (test code = 0.2 0.2-1 91595-5) [facility] CenterUrine [id number] 02:00:00 Test Item Value Reference Range Interpretation Comments Urine Bilirubin (test code = 1978-6) NEGATIVE NEGATIVE [facility] CenterUrine [id number] 02:00:00 Test Item Value Reference Range Interpretation Comments Urine Blood (test code = 81793-8) NEGATIVE NEGATIVE [facility] CenterCT [facility]BDOMEN[facility]PELVIS WO [facility] [address] [address] Patient Name: DELISA GODOY MR #: [id number] : 1990 Age/Sex: 27/F Req #: [id number] Adm Physician: Ordered by: ALISTAIR BHAKTA MD Report #: [id number] Location: ER Room/Bed: Procedure: [id number] CT/CT ABDOMEN/PELVIS WO Exam Date: Exam Time: REPORT STATUS: Signed EXAM: CT Abdomen and Pelvis WITHOUT contrast INDICATION: Flank pain, stone versus nephritis COMPARISON: None. TECHNIQUE: Abdomen and pelvis were scanned utilizing a multidetector helical scanner from the lung base to the pubic symphysis without administration of IV contrast. Absence of intravenous contrast decreases sensitivity fordetection of focal lesions and vascular pathology. Coronal and sagittal reformations were obtained. Stone protocol is performed. IV CONTRAST: None. ORAL CONTRAST: None RADIATION DOSE: Total DLP: 283.30 mGy*cm Estimated effective dose: (DLP x0.015 x size factor) mSv COMPLICATIONS: None FINDINGS: LINES and TUBES: None. LOWER THORAX: Unremarkable HEPATOBILIARY: No focal hepatic lesions. No biliary ductal dilation. GALLBLADDER: No radio-opaque stones or sludge. No wall thickening. SPLEEN: No splenomegaly. PANCREAS: No focal masses or ductal dilatation. ADRENALS: No adrenal nodules KIDNEYS/URETERS: There is mild effacement of the right renal sinus fat and prominence of the right ureter without hydronephrosis. No cystic or solid mass lesions. No stones. GI TRACT: No abnormal distention, wall thickening, or evidence of bowel obstruction. Appendix isnot clearly identified. There is however no fat stranding or adenopathy in the right lower quadrant to suggest appendicitis. PELVIC ORGANS/BLADDER: Unremarkable. LYMPH NODES: No lymphadenopathy. VESSELS: Unremarkable. PERITONEUM / RETROPERITONEUM: No free air or fluid. BONES: Unremarkable. SOFT TISSUES: Unremarkable. IMPRESSION: 1. Findings are suspicious for right-sided pyelonephritis in the appropriate clinical setting 2. No evidence of nephrolithiasis Signed by: Dr. Damian Brown M.D. on 09/22/2017 3:34 AM Dictated By: DAMIAN ARAMBULA MD 3 Transcribed By: MARIO on 09/22/17333 COPY TO: ALISTAIR BHAKTA MD
--- NOTE | 2020-01-24 01:32 | EDPHYS ---
Physician Documentation [facility] Name: Sonya Guevara Age: 29 yrs Sex: Female : 1990 Arrival Date: 01/24/2020 Time: 00:15 Bed 23 Private MD: ED Physician Lito De Guzman HPI: 01/23 01:29 This 29 yrs old Unknown Female presents to ER via Ambulatory with complaints of Pain hanna With Urination, Diarrhea. 01:29 The patient presents to the emergency department with diarrhea. Onset: The hanna symptoms/episode began/occurred 2 day(s) ago. Possible causes: unknown. Historical: - Allergies: 00:53 No Known Allergies; iw - Home Meds: :53 None [Active]; iw - PMHx: :53 None; iw - PSHx: :53 None; iw - Immunization history:: Adult Immunizations unknown. - Social history:: Smoking status: . ROS: 01:29 Constitutional: Negative for fever, chills, and weight loss, Eyes: Negative for injury, hanna pain, redness, and discharge, ENT: Negative for injury, pain, and discharge, Neck: Negative for injury, pain, and swelling, Cardiovascular: Negative for chest pain, palpitations, and edema, Respiratory: Negative for shortness of breath, cough, wheezing, and pleuritic chest pain, Back: Negative for injury and pain, MS/Extremity: Negative for injury and deformity, Skin: Negative for injury, rash, and discoloration, Neuro: Negative for headache, weakness, numbness, tingling, and seizure, Psych: Negative for depression, anxiety, suicide ideation, homicidal ideation, and hallucinations, Allergy/Immunology: Negative for hives, rash, and allergies, Endocrine: Negative for neck swelling, polydipsia, polyuria, polyphagia, and marked weight changes, Hematologic/Lymphatic: Negative for swollen nodes, abnormal bleeding, and unusual bruising. :29 Abdomen/GI: Positive for diarrhea. 01: : Positive for burning with urination, fear of std, recent to positive partner. Exam: 01:29 Constitutional: This is a well developed, well nourished patient who is awake, alert, hanna and in no acute distress. Head/Face: Normocephalic, atraumatic. Eyes: Pupils equal round and reactive to light, extra-ocular motions intact. Lids and lashes normal. Conjunctiva and sclera are non-icteric and not injected. Cornea within normal limits. Periorbital areas with no swelling, redness, or edema. ENT: Nares patent. No nasal discharge, no septal abnormalities noted. Tympanic membranes are normal and external auditory canals are clear. Oropharynx with no redness, swelling, or masses, exudates, or evidence of obstruction, uvula midline. Mucous membranes moist. Neck: Trachea midline, no thyromegaly or masses palpated, and no cervical lymphadenopathy. Supple, full range of motion without nuchal rigidity, or vertebral point tenderness. No Meningismus. Chest/axilla: Normal chest wall appearance and motion. Nontender with no deformity. No lesions are appreciated. Cardiovascular: Regular rate and rhythm with a normal S1 and S2. No gallops, murmurs, or rubs. Normal PMI, no JVD. No pulse deficits. Respiratory: Lungs have equal breath sounds bilaterally, clear to auscultation and percussion. No rales, rhonchi or wheezes noted. No increased work of breathing, no retractions or nasal flaring. Abdomen/GI: Soft, non-tender, with normal bowel sounds. No distension or tympany. No guarding or rebound. No evidence of tenderness throughout. Back: No spinal tenderness. No costovertebral tenderness. Full range of motion. Pelvic Exam: Normal external genitalia. Speculum exam with closed cervical os, no discharge or bleeding noted. Bimanual exam with normal adnexa, no adnexal or cervical motion tenderness. Normal uterus. Skin: Warm, dry with normal turgor. Normal color with no rashes, no lesions, and no evidence of cellulitis. MS/ Extremity: Pulses equal, no cyanosis. Neurovascular intact. Full, normal range of motion. Neuro: Awake and alert, GCS 15, oriented to person, place, time, and situation. Cranial nerves II-XII grossly intact. Motor strength 5/5 in all extremities. Sensory grossly intact. Cerebellar exam normal. Normal gait. Psych: Awake, alert, with orientation to person, place and time. Behavior, mood, and affect are within normal limits. Vital Signs: 00:47 BP 117 / 74; Pulse 110; Resp 16 S; Temp 98.0; Pulse Ox 98% on R/A; Weight 65.77 kg; Height 5 ft. 0 in. (152.40 cm); 00:47 Body Mass Index 28.32 (65.77 kg, 152.40 cm) MDM: 00:41 Patient medically screened. [facility] 01:33 Differential diagnosis: Nonspecific abd pain, gastroenteritis, pelvic inflammatory hanna disease, urinary tract infection. Data reviewed: vital signs, nurses notes, lab test result(s), urinalysis, bacteruria. Data interpreted: threat monitoring analyst: not applicable for this patient encounter. rate is 110 beats/min, rhythm is regular, Pulse oximetry: on room air is 98 %. Counseling: I had a detailed discussion with the patient and/or guardian regarding: the historical points, exam findings, and any diagnostic results supporting the discharge/admit diagnosis, lab results, the need for outpatient follow up, for definitive care, an OB/Gyne specialist. ED course: get checked by adjunct art history instructor, no sexual activity. 01/23 00:42 Order name: Urine Culture [facility] 01/23 00:49 Order name: Urine Dipstick--Ancillary (enter results) [facility] 01/23 00:49 Order name: Urine --Ancillary (enter results) [facility] 01/23 00:42 Order name: Urine Dipstick-Ancillary (obtain specimen); Complete Time: 00:55 [facility] 01/23 00:42 Order name: Urine Test (obtain specimen); Complete Time: 00:55 [facility] Administered Medications: 02:00 Drug: Rocephin (cefTRIAXone) 1 grams Route: IM; Site: left vastus lateralis; 02:08 Follow up: Response: No adverse reaction 02:00 Drug: Zithromax 1 grams Route: PO; iw 02:08 Follow up: Response: No adverse reaction 02:00 Drug: Doxycycline 100 mg Route: PO; iw 02:08 Follow up: Response: No adverse reaction Disposition: 01/24/20 01:32 Discharged to Home. Impression: Dysuria - fear of STD, Diarrhea, unspecified. - Condition is Stable. - Discharge Instructions: Food Choices to Help Relieve Diarrhea, Adult, Diarrhea, Adult, Dysuria, Sexually Transmitted Disease, [id number], Diarrhea, Adult, [id number]. - Prescriptions for Cipro 250 mg Oral Tablet - take 1 tablet by ORAL route every 12 hours; 14 tablet. Doxycycline Hyclate 100 mg Oral Tablet - take 1 tablet by ORAL route every 12 hours; 20 tablet. - Medication Reconciliation Form, Thank You Letter, Antibiotic Education, Prescription Opioid Use form. - Follow up: Private Physician; When: 2 - 3 days; Reason: Recheck today's complaints, Re-evaluation by your physician. - Problem is new. - Symptoms have improved. Signatures: Dispatcher [employer] EDIA Lito De Guzman MD MD cha Williams, Irene RN RN iw Corrections: (The following items were deleted from the chart) 01:56 01:32 01/24/2020 01:32 Discharged to Home. Impression: Dysuria - fear of STD; Diarrhea, iw unspecified. Condition is Stable. Forms are Medication Reconciliation Form, Thank You Letter, Antibiotic Education, Prescription Opioid Use. Follow up: Private Physician; When: 2 - 3 days; Reason: Recheck today's complaints, Re-evaluation by your physician. Problem is new. Symptoms have improved. hanna
--- NOTE | 2020-01-24 01:32 | ER ---
Nurse's Notes [facility] Name: Sonya Guevara Age: 29 yrs Sex: Female : 1990 Arrival Date: 01/24/2020 Time: 00:15 Bed 23 Private MD: Diagnosis: Dysuria-fear of STD;Diarrhea, unspecified Presentation: 01/23 00:47 Chief complaint: Patient states: ex bf told her he had some discharge and she has had iw pain with urination for four days. Coronavirus screen: At this time, the client does not indicate any symptoms associated with coronavirus-19. Ebola Screen: Patient negative for fever greater than or equal to 101.5 degrees Fahrenheit, and additional compatible Ebola Virus Disease symptoms Patient denies exposure to infectious person. Patient denies travel to an Ebola-affected area in the 21 days before illness onset. No symptoms or risks identified at this time. Initial Sepsis Screen: Does the patient meet any 2 criteria? No. Patient's initial sepsis screen is negative. Does the patient have a suspected source of infection? No. Patient's initial sepsis screen is negative. Risk Assessment: Do you want to hurt yourself or someone else? Patient reports no desire to harm self or others. 00:47 Method Of Arrival: Ambulatory iw 00:47 Acuity: VICTORINA 4 iw Triage Assessment: 01:30 General: Appears in no apparent distress. Behavior is calm. iw Historical: - Allergies: 00:53 No Known Allergies; iw - Home Meds: 00:53 None [Active]; iw - PMHx: 00:53 None; iw - PSHx: 00:53 None; iw - Immunization history:: Adult Immunizations unknown. - Social history:: Smoking status: . Screenin:55 Abuse screen: Denies threats or abuse. Denies injuries from another. Nutritional iw screening: No deficits noted. Tuberculosis screening: No symptoms or risk factors identified. Fall Risk None identified. Assessment: 00:47 General: Appears in no apparent distress. Pain: Complains of pain in suprapubic area. iw Neuro: Level of Consciousness is awake, alert, obeys commands, Oriented to person, place, time, situation, Appropriate for age Moves all extremities. Full function. GI: Abdomen is non-distended. : Reports burning with urination, since 01/18. Derm: Skin is intact, is healthy with good turgor. Musculoskeletal: Range of motion: intact in all extremities. 01:45 Reassessment: pt was not in room when attempted to medicate, called pt on cell phone, iw stated that she had to take her daughter home and she would be back. Vital Signs: 00:47 BP 117 / 74; Pulse 110; Resp 16 S; Temp 98.0; Pulse Ox 98% on R/A; Weight 65.77 kg; iw Height 5 ft. 0 in. (152.40 cm); 00:47 Body Mass Index 28.32 (65.77 kg, 152.40 cm) iw ED Course: 00:15 Patient arrived in ED. am2 00:40 Lito De Guzman MD is Attending Physician. hanna 00:45 Angella Sena, RN is Primary Nurse. iw 00:52 Triage completed. iw 01:00 Patient has correct armband on for positive identification. iw 01:40 Arm band placed on. iw 01:55 No provider procedures requiring assistance completed. Patient did not have IV access iw during this emergency room visit. Administered Medications: 02:00 Drug: Rocephin (cefTRIAXone) 1 grams Route: IM; Site: left vastus lateralis; iw 02:08 Follow up: Response: No adverse reaction iw 02:00 Drug: Zithromax 1 grams Route: PO; iw 02:08 Follow up: Response: No adverse reaction iw 02:00 Drug: Doxycycline 100 mg Route: PO; iw 02:08 Follow up: Response: No adverse reaction iw Outcome: 01:32 Discharge ordered by . hanna 01:55 Discharged to home ambulatory. iw 01:55 Condition: good 01:55 Discharge instructions given to patient, Instructed on discharge instructions, follow up and referral plans. medication usage, Demonstrated understanding of instructions, follow-up care, medications, Prescriptions given X 2. 01:56 Patient left the ED. iw Addendum: 01/27/2020 08:05 Addendum: Culture Results: Positive urine culture. No further action required. Bacteria i w sensitive to prescribed antibiotic. Signatures: Lito De Guzman MD MD cha Williams, Irene, RN RN Shirlene Younger am2
[2020-01-24 01:34] LABS: Urine Blood 2+ (NEG); Urine Glucose NEGATIVE (NEG); Urine Protein TRACE (NEG); Urine Specific Gravity >1.030 (1.005-1.030); Urine pH 5.5 (5.0-7.0)
[2020-01-24] MEDS ORDERED: LIDOCAINE 1% MPF 5 ML VIAL ONE (01:44)
[2020-01-24] MEDS ORDERED: AZITHROMYCIN 250 MG TAB ONE (01:44)
[2020-01-24] MEDS ORDERED: DOXYCYCLINE 100 MG CAP PO ONE (01:44)
[2020-01-24] MEDS ORDERED: CEFTRIAXONE 1000 MG/VIAL ONE (01:44)
== END 2020-01-24 01:56 | disposition home or self-care (01) ==
LOC: ER 00:13
DX: R19.7 Diarrhea, unspecified (principal)
CPT/HCPCS: 81003; 81025; 87077; 87086; 87088; 87186; 96372; 99283